=== PATIENT | male | born 1980 | race Two or more races ===

== ENCOUNTER 2024-11-08 21:56 | Emergency (ER) | payer OTHER ==
[~2024-11-08] VITALS: Ht 167.6 cm; Wt 90.7 kg
[2024-11-08] MEDS ORDERED: MOUNJARO5 MG/0.5 M (22:34)
[2024-11-08 22:35] VITALS: BP 132/82; O2SAT 100
== END 2024-11-09 08:13 | disposition left against medical advice (07) ==
LOC: ER 22:15
DX: Z53.21 Procedure and treatment not carried out due to patient leaving prior to being seen by health care provider (principal)